=== PATIENT | female | born 1995 | race African-American/Black ===

== ENCOUNTER 2017-07-07 09:44 | Emergency (ER) | payer MEDICAID ==
--- NOTE | 2017-07-07 10:05 | EDM.PDOC ---
ED HPI GENERAL MEDICAL PROBLEM - General Chief Complaint: ENT Problem Stated Complaint: earache Time Seen by Provider: 07/07/17 09:55 - History of Present Illness INITIAL COMMENTS - FREE TEXT/NARRATIVE: HISTORY AND PHYSICAL: History of present illness: The patient is a 21-year-old female who is 34 weeks with no related complaints who comes into the ED with complaints of bilateral ear pain, mostly on the right side but she feels like she can't hear very well on the left side. According to patient started 4 days ago on the right side and her mother tried to put hydrogen peroxide in both ears and the patient says it made it worse and now the left ear feels plugged up. Patient denies any fever chills chest pain or shortness of breath has no sore throat. Patient has no related complaints such as abdominal pain or cramping vaginal bleeding she says the baby has been moving appropriately. Review of systems: As per history of present illness and below otherwise all systems reviewed and negative. Past medical history: As per history of present illness and as reviewed below otherwise noncontributory. Surgical history: As per history of present illness and as reviewed below otherwise noncontributory. Social history: No reported history of drug or alcohol abuse. Family history: As per history of present illness and as reviewed below otherwise noncontributory. Physical exam: Gen.: Well-developed well-nourished female who is nontoxic and has a gravid uterus. Vital signs been reviewed by me HEENT: Atraumatic, normocephalic, pupils reactive, negative for conjunctival pallor or scleral icterus, mucous membranes moist, throat clear, neck supple, nontender, trachea midline. No cervical adenopathy or nuchal rigidity. The right ear is slightly reddened but more dull and there is some cerumen in the canal and no swelling. The left TM is unable to be visualized due to copious white material up against the TM. Lungs: Clear to auscultation, breath sounds equal bilaterally, chest nontender. Heart: S1S2, regular rate and rhythm no overt murmurs Abdomen: Soft, nondistended, nontender. Gravid uterus Pelvis: Stable nontender. Genitourinary: Deferred. Rectal: Deferred. Extremities: Atraumatic, negative for cords or calf pain. Neurovascular unremarkable. Neuro: Awake, alert, oriented. Cranial nerves II through XII unremarkable. Cerebellum unremarkable. Motor and sensory unremarkable throughout. Exam nonfocal. Diagnostics: Therapeutics: Irrigation of left ear After irrigation by nursing the fibrinous whitish material seen up against the TM is not dislodging please do believe that this is a cholesteatoma with an otitis externa. I will refer her to Dr. Mcdowell Impression: Bilateral otalgia, otitis externa/cholesteatoma left, or trimester stable Definitive disposition and diagnosis as appropriate pending reevaluation and review of above. Right Ear Pain Score (Numeric/FACES): 6 - Related Data Allergies Allergy/AdvReac Type Severity Reaction Status Date / Time No Known Allergies Allergy Verified 07/10/15 22:55 Home Meds: Home Meds [id number]/Iron Fumarate/FA/DSS [ 19 Tablet] 1 tab PO DAILY 07/07/17 [ History] Social & Family History - Tobacco Use Smoking Status *Q: Never Smoker - Recreational Drug Use Recreational Drug Use: No ED ROS GENERAL - Review of Systems Review Of Systems: ROS reveals no pertinent complaints other than HPI. ED EXAM, GENERAL - Physical Exam Exam: See Below (See dictation) Course - Vital Signs Last Recorded V/S: Last Vital Signs Temp 36.5 C 07/07/17 09:54 Pulse 83 07/07/17 09:54 Resp 12 07/07/17 09:54 BP 115/55 L 07/07/17 09:54 Pulse Ox 98 07/07/17 09:54 - Orders/Labs/Meds Orders: Active Orders 24 hr Category Date Time Status Communication Order [RC] STAT Care 07/07/17 10:01 Active Departure - Departure Time of Disposition: 10:46 Disposition: Home, Self-Care 01 Condition: Good Clinical Impression: Third trimester , Otalgia of both ears Otitis externa Qualifiers: Otitis externa type: unspecified type Chronicity: acute Laterality: left Qualified Code(s): H60.502 - Unspecified acute noninfective otitis externa, left ear Cholesteatoma Qualifiers: Laterality: left Qualified Code(s): H71.92 - Unspecified cholesteatoma, left ear - Discharge Information Referrals: Mathieu Selby MD [Primary Care Provider] - Forms: ED Department Discharge Additional Instructions: The following information is given to patients seen in the emergency department who are being discharged to home. This information is to outline your options for follow-up care. We provide all patients seen in our emergency department with a follow-up referral. The need for follow-up, as well as the timing and circumstances, are variable depending upon the specifics of your emergency department visit. If you don't have a primary care physician on staff, we will provide you with a referral. We always advise you to contact your personal physician following an emergency department visit to inform them of the circumstance of the visit and for follow-up with them and/or the need for any referrals to a consulting specialist. The emergency department will also refer you to a specialist when appropriate. This referral assures that you have the opportunity for followup care with a specialist. All of these measure are taken in an effort to provide you with optimal care, which includes your followup. Under all circumstances we always encourage you to contact your private physician who remains a resource for coordinating your care. When calling for followup care, please make the office aware that this follow-up is from your recent emergency room visit. If for any reason you are refused follow-up, please contact the [facility] emergency department at and ask to speak to the emergency department charge nurse. [facility] Primary care- Internal Medicine and Family Pr[facility] [address] [place] [id number] [facility] Specialty Care - ENT [address] [place] [id number] Please follow-up with her primary care provider about your ear or our ENT specialist. Please follow-up with [facility] women's clinic for your and use eardrops as directed. Please return to ER as needed and as discussed. - My Orders Last 24 Hours: My Active Orders 07/07/17 10:01 Communication Order [RC] STAT - Assessment/Plan Last 24 Hours: My Active Orders 07/07/17 10:01 Communication Order [RC] STAT
[2017-07-07 11:14] VITALS: BP 100/59
== END 2017-07-07 11:04 | disposition home or self-care (01) ==
LOC: MW.ED 09:44
DX: O99.89 Other specified diseases and conditions complicating pregnancy, childbirth and the puerperium (principal); H60.502 Unspecified acute noninfective otitis externa, left ear; H71.92 Unspecified cholesteatoma, left ear; H92.01 Otalgia, right ear; Z3A.34 34 weeks gestation of pregnancy
CPT/HCPCS: 99283

== ENCOUNTER 2017-07-23 09:10 | Emergency (ER) | payer MEDICAID ==
--- NOTE | 2017-07-23 09:57 | EDM.PDOC ---
ED HPI GENERAL MEDICAL PROBLEM - General Chief Complaint: ENT Problem Stated Complaint: THROAT ISSUES 38WK Time Seen by Provider: 07/23/17 09:41 - History of Present Illness INITIAL COMMENTS - FREE TEXT/NARRATIVE: HISTORY AND PHYSICAL: History of present illness: Patient's 21-year-old black female who presents with concern of sore throat she denies fever chills nausea vomiting or other complaints patient is and has no complaints related to or other Review of systems: As per history of present illness and below otherwise all systems reviewed and negative. Past medical history: As per history of present illness and as reviewed below otherwise noncontributory. Surgical history: As per history of present illness and as reviewed below otherwise noncontributory. Social history: No reported history of drug or alcohol abuse. Family history: As per history of present illness and as reviewed below otherwise noncontributory. Physical exam: HEENT: Atraumatic, normocephalic, pupils reactive, negative for conjunctival pallor or scleral icterus, mucous membranes moist, throat mild injection, neck supple, nontender, trachea midline. Lungs: Clear to auscultation, breath sounds equal bilaterally, chest nontender. Heart: S1S2, regular, negative for clicks, rubs, or JVD. Abdomen: Soft, nondistended, nontender. Negative for masses or hepatosplenomegaly. Negative for costovertebral tenderness. Pelvis: Stable nontender. Genitourinary: Deferred. Rectal: Deferred. Extremities: Atraumatic, negative for cords or calf pain. Neurovascular unremarkable. Neuro: Awake, alert, oriented. Cranial nerves II through XII unremarkable. Cerebellum unremarkable. Motor and sensory unremarkable throughout. Exam nonfocal. Diagnostics: Rapid strep Therapeutics: None Impression: #1 pharyngitis Definitive disposition and diagnosis as appropriate pending reevaluation and review of above. 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 ED EXAM, GENERAL - Physical Exam Exam: See Below (See dictation) Course - Vital Signs Last Recorded V/S: Last Vital Signs Temp 36.5 C 07/23/17 09:31 Pulse 106 H 07/23/17 09:31 Resp 14 07/23/17 09:31 BP 111/65 07/23/17 09:31 Pulse Ox 99 07/23/17 09:31 - Orders/Labs/Meds Orders: Active Orders 24 hr Category Date Time Status CULTURE STREP A CONFIRMATION [RM] Stat Lab 07/23/17 09:50 Results STREP SCRN A RAPID W CULT CONF [RM] Stat Lab 07/23/17 09:50 Results Departure - Departure Time of Disposition: 09:56 Disposition: Home, Self-Care 01 Condition: Good Clinical Impression: Pharyngitis - Discharge Information Instructions: Pharyngitis, [id number] Referrals: Mathieu Selby MD [Primary Care Provider] - Forms: ED Department Discharge Additional Instructions: The following information is given to patients seen in the emergency department who are being discharged to home. This information is to outline your options for follow-up care. We provide all patients seen in our emergency department with a follow-up referral. The need for follow-up, as well as the timing and circumstances, are variable depending upon the specifics of your emergency department visit. If you don't have a primary care physician on staff, we will provide you with a referral. We always advise you to contact your personal physician following an emergency department visit to inform them of the circumstance of the visit and for follow-up with them and/or the need for any referrals to a consulting specialist. The emergency department will also refer you to a specialist when appropriate. This referral assures that you have the opportunity for followup care with a specialist. All of these measure are taken in an effort to provide you with optimal care, which includes your followup. Under all circumstances we always encourage you to contact your private physician who remains a resource for coordinating your care. When calling for followup care, please make the office aware that this follow-up is from your recent emergency room visit. If for any reason you are refused follow-up, please contact the [facility] emergency department at and asked to speak to the emergency department charge nurse. Tylenol as directed follow-up primary medical doctor on today's return as needed as discussed - My Orders Last 24 Hours: My Active Orders 07/23/17 09:50 CULTURE STREP A CONFIRMATION [RM] Stat STREP SCRN A RAPID W CULT CONF [RM] Stat - Assessment/Plan Last 24 Hours: My Active Orders 07/23/17 09:50 CULTURE STREP A CONFIRMATION [RM] Stat STREP SCRN A RAPID W CULT CONF [RM] Stat
[2017-07-23 11:17] VITALS: BP 114/63
== END 2017-07-23 11:18 | disposition home or self-care (01) ==
LOC: MW.ED 09:10
DX: O99.513 Diseases of the respiratory system complicating pregnancy, third trimester (principal); J02.9 Acute pharyngitis, unspecified; Z77.22 Contact with and (suspected) exposure to environmental tobacco smoke (acute) (chronic); Z3A.38 38 weeks gestation of pregnancy
CPT/HCPCS: 87081; 87880; 99283

== ENCOUNTER 2017-08-18 19:55 | Inpatient (IN) | payer MEDICAID ==
[2017-08-18] MEDS ORDERED: Misoprostol 200 MCG Tab PO PRN (20:55)
[2017-08-18] MEDS ORDERED: Water For Irrigation,Sterile 1,000 ML Container IRR PRN (20:55)
[2017-08-18] MEDS ORDERED: Sodium Chloride 0.9% 2.5 ML Syringe FLUSH PRN (20:55)
[2017-08-18] MEDS ORDERED: Sodium Chloride 0.9% 10 ML Syringe FLUSH PRN (20:55)
[2017-08-18] MEDS ORDERED: Butorphanol 1 MG/ML SDV IVPUSH PRN (20:55)
[2017-08-18] MEDS ORDERED: Carboprost Tromethamine 250 MCG/1 ML Amp IM PRN (20:55)
[2017-08-18] MEDS ORDERED: Lidocaine 1% 50 ML MDV INJECT PRN (20:55)
[2017-08-18] MEDS ORDERED: Nalbuphine 10 MG/1 ML Vial IVPUSH PRN (20:55)
[2017-08-18] MEDS ORDERED: Methylergonovine 0.2 MG/1 ML Amp IM PRN (20:55)
[2017-08-18] MEDS ORDERED: Oxytocin/0.9 % Sodium Chloride 30 UNIT/500 ML BAG IV SCH (21:00)
[2017-08-18] MEDS: Lactated Ringers 1,000 ML IV SCH (21:47)
[2017-08-19] MEDS: Lactated Ringers 1,000 ML IV SCH ×3 (00:06→05:11)
[2017-08-19] MEDS ORDERED: Ropivacaine 0.2% 2 MG/ML 20 ML SDV ONE (00:27)
--- NOTE | 2017-08-19 00:27 | PCM.LDHP ---
L&D History of Present Illness - General Date of Service: 08/19/17 Admit Problem/Dx: Patient Status Order with Admit Dx/Problem 08/18/17 20:22 Patient Status [ADT] Routine 08/18/17 20:56 Patient Status [ADT] Routine Admission Diagnosis/Problem Admission Diagnosis/Problem 08/19/17 00:21 21 yo EDC 08/17/2017 40 1/7wks, SROM at 1530 yesterday clear fluid, A-, RI , GBS neg. Source of Information: Patient History Limitations: Reports: No Limitations - History of Present Illness Pain Score: 10 Improves with: Reports: None Worsens with: Reports: None Associated Symptoms: Reports: N - Related Data Allergies/Adverse Reactions: Allergies Allergy/AdvReac Type Severity Reaction Status Date / Time No Known Allergies Allergy Verified 07/23/17 09:43 Home Medications: Home Meds [id number]/Iron Fumarate/FA/DSS [ 19 Tablet] 1 tab PO DAILY 07/07/17 [ History] Past Medical History - Past Health History Medical/Surgical History: Denies Medical/Surgical History Genitourinary History: Reports: UTI, 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: Hematologic History: Reports: Anemia Dermatologic History: Reports: Eczema Social & Family History - Family History Family Medical History: Noncontributory Cardiac: Reports: Pacemaker : Reports: None OBGYN: Reports: Endocrine/Metabolic: Reports: None - Tobacco Use Smoking Status *Q: Never Smoker Second Hand Smoke Exposure: Yes - Caffeine Use Caffeine Use: Reports: Coffee, Soda - Recreational Drug Use Recreational Drug Use: No H&P Review of Systems - Review of Systems: Review Of Systems: See Below General: Reports: No Symptoms HEENT: Reports: No Symptoms Pulmonary: Reports: No Symptoms Cardiovascular: Reports: No Symptoms Gastrointestinal: Reports: No Symptoms Genitourinary: Reports: No Symptoms Musculoskeletal: Reports: No Symptoms Skin: Reports: No Symptoms Psychiatric: Reports: No Symptoms Neurological: Reports: No Symptoms Hematologic/Lymphatic: Reports: No Symptoms Immunologic: Reports: No Symptoms L&D Exam - Exam Exam: See Below - Vital Signs Weight: 88.451 kg - OB Specific Contraction Intensity: Moderate to Strong Movement: Active Heart Tones: Present Heart Tones per Min: 140 Heart Rate (FHR) Variability: Moderate (6-25 bmp) Presentation: Vertex Estimated Weight: 3900 - Koroma Score Koroma Score Cervix Position: Posterior Koroma Score Consistency: Soft Koroma Score Effacement: 51-70% Koroma Score Dilation: 3-4 cm Koroma Score Infant's Station: -3 Koroma Score Total: 6 - Exam General: Alert, Oriented, Cooperative HEENT: Hearing Intact Lungs: Clear to Auscultation, Normal Respiratory Effort Cardiovascular: Regular Rate, Regular Rhythm GI/Abdominal Exam: Soft, Non-Tender, No Organomegaly Rectal Exam: Deferred Genitourinary: Cervical fluid Back Exam: Full Range of Motion Extremities: Normal Range of Motion, Non-Tender, No Pedal Edema, Normal Capillary Refill Skin: Warm, Dry, Intact Neurological: Reflexes Equal Bilateral, Normal Speech, Normal Tone Psychiatric: Alert, Normal Affect, Normal Mood - Patient Data Lab Results Last 24 hrs: Laboratory Results - last 24 hr 08/18/17 08/18/17 08/18/17 Range/Units 20:15 21:25 21:25 WBC 7.90 (4.0-11.0) K/uL RBC 4.19 L (4.30-5.90) M/uL Hgb 11.3 L (12.0-16.0) g/dL Hct 34.4 L (36.0-46.0) % MCV 82.1 (80.0-98.0) fL MCH 27.0 (27.0-32.0) pg MCHC 32.8 (31.0-37.0) g/dL RDW Std Deviation 42.4 (28.0-62.0) fl RDW Coeff of Tomer 14 (11.0-15.0) % Plt Count 194 (150-400) K/uL MPV 11.00 (7.40-12.00) fL Nucleated RBC % 0.0 /100WBC Nucleated RBCs # 0 K/uL Membrane Rupture POSITIVE Blood Type A NEGATIVE Antibody Screen NEGATIVE Result Diagrams: 08/18/17 21:25 - Problem List (1) Supervision of normal IUP (intrauterine ) in primigravida SNOMED Code(s): 71434089, 052470258, 242641927 ICD Code: Z34.00 - ENCNTR FOR SUPRVSN OF NORMAL FIRST , UNSP TRIMESTER Status: Acute Priority: High Current Visit: Yes Qualifiers: Trimester: third trimester Qualified Code(s): Z34.03 - Encounter for supervision of normal first , third trimester (2) SROM (spontaneous rupture of membranes) SNOMED Code(s): 121744723 ICD Code: QEB4606 - Status: Acute Priority: High Current Visit: Yes Problem List Initiated/Reviewed/Updated: Yes Orders Last 24hrs: Active Orders 24 hr Category Date Time Status Patient Status [ADT] Routine ADT 08/18/17 20:22 Active Patient Status [ADT] Routine ADT 08/18/17 20:56 Active Heart Tones [RC] CONTINUOUS Care 08/18/17 20:56 Active Non Stress Test [RC] PER UNIT ROUTINE Care 08/18/17 20:22 Active Non Stress Test [RC] PER UNIT ROUTINE Care 08/18/17 20:56 Active May Shower [RC] ASDIRECTED Care 08/18/17 20:56 Active Notify Provider [RC] PRN Care 08/18/17 20:56 Active Up ad Monik [RC] ASDIRECTED Care 08/18/17 20:22 Active Up ad Monik [RC] ASDIRECTED Care 08/18/17 20:56 Active Vaginal Exam [RC] Click to Edit Care 08/18/17 20:22 Active Vaginal Exam [RC] PRN Care 08/18/17 20:56 Active Vital Signs [RC] PER UNIT ROUTINE Care 08/18/17 20:22 Active Vital Signs [RC] PER UNIT ROUTINE Care 08/18/17 20:56 Active Clear Liquid Diet [DIET] Diet 08/19/17 Breakfast Active Butorphanol [Stadol] Med 08/18/17 20:55 Active 1 mg IVPUSH Q1H PRN Carboprost Tromethamine [Hemabate DS] Med 08/18/17 20:55 Active 250 mcg IM ASDIRECTED PRN Lactated Ringers [Ringers, Lactated] 1,000 ml Med 08/18/17 21:00 Active IV ASDIRECTED Lidocaine 1% [Xylocaine 1%] Med 08/18/17 20:55 Active 50 ml INJECT .ONCE PRN Methylergonovine [Methergine] Med 08/18/17 20:55 Active 0.2 mg IM ASDIRECTED PRN Misoprostol [Cytotec] Med 08/18/17 20:55 Active 200 mcg PO .ONCE PRN Nalbuphine [Nubain] Med 08/18/17 20:55 Active 10 mg IVPUSH Q1H PRN Oxytocin/0.9 % Sodium Chloride [Oxytocin 30 Unit/500 ML Med 08/18/17 21:00 Active -NS] 30 unit in 500 ml IV TITRATE Sodium Chloride 0.9% [Saline Flush] Med 08/18/17 20:55 Active 10 ml FLUSH ASDIRECTED PRN Sodium Chloride 0.9% [Saline Flush] Med 08/18/17 20:55 Active 2.5 ml FLUSH ASDIRECTED PRN Water For Irrigation,Sterile [Sterile Water for Med 08/18/17 20:55 Active Irrigation] 1,000 ml IRR ASDIRECTED PRN Scalp Electrode [WOMSER] Per Unit Routine Oth 08/18/17 20:56 Ordered Peripheral IV Insertion Adult [OM.PC] Routine Oth 08/18/17 20:56 Ordered Resuscitation Status Routine Resus Stat 08/18/17 20:22 Ordered Medication Orders Butorphanol Tartrate (Stadol) 1 mg IVPUSH Q1H PRN PRN Reason: Pain Last Admin: 08/18/17 23:49 Dose: 1 mg Carboprost Tromethamine (Hemabate Ds) 250 mcg IM ASDIRECTED PRN PRN Reason: Post Hemorrhage Lactated Ringer's (Ringers, Lactated) 1,000 mls @ 150 mls/hr IV ASDIRECTED MASOUD Last Admin: 08/19/17 00:06 Dose: 150 mls/hr Infusion: 08/19/17 00:06 Dose: 999 mls/hr Admin: 08/18/17 21:47 Dose: 150 mls/hr Oxytocin/Sodium Chloride (Oxytocin 30 Unit/500 Ml-Ns) 30 unit in 500 mls @ 999 mls/hr IV TITRATE MASOUD Lidocaine HCl (Xylocaine 1%) 50 ml INJECT .ONCE PRN PRN Reason: Laceration repair Methylergonovine Maleate (Methergine) 0.2 mg IM ASDIRECTED PRN PRN Reason: Post Hemorrhage Misoprostol (Cytotec) 200 mcg PO .ONCE PRN PRN Reason: Post Hemorrhage Nalbuphine HCl (Nubain) 10 mg IVPUSH Q1H PRN PRN Reason: Pain (severe 7-10) Sodium Chloride (Saline Flush) 10 ml FLUSH ASDIRECTED PRN PRN Reason: Keep Vein Open Sodium Chloride (Saline Flush) 2.5 ml FLUSH ASDIRECTED PRN PRN Reason: Keep Vein Open Sterile Water (Sterile Water For Irrigation) 1,000 ml IRR ASDIRECTED PRN PRN Reason: delivery Assessment/Plan Comment:: Labor A: 21 yo EDC 08/17/2017 40 1/7wks, SROM at 1530 yesterday clear fluid, A-, RI, GBS neg. P: Admit to L&D, epidural prn, anticipate .
[2017-08-19] MEDS ORDERED: Ropivacaine HCl/PF 100 ML ONE (00:29)
[2017-08-19] MEDS ORDERED: fentaNYL 100 MCG/2 ML SDV ONE (00:30)
--- NOTE | 2017-08-19 01:15 | PCM.PREANE ---
Preanesthetic Assessment - Anesthesia/Transfusion/Family Hx Anesthesia History: No Prior Anesthesia Family History of Anesthesia Reaction: No Transfusion History: No Prior Transfusion(s) - Review of Systems General: No Symptoms Pulmonary: No Symptoms Cardiovascular: No Symptoms Gastrointestinal: No Symptoms Neurological: No Symptoms Other: Reports: None (Denies any personal or family hx of bleeding or clotting problems) - Physical Assessment Height: 1.65 m Weight: 88.451 kg ASA Class: 2 Mental Status: Alert & Oriented x3 Dentition: Reports: Normal Dentition ROM/Head Extension: Full - Lab Values: Laboratory Last Values WBC 7.90 K/uL (4.0-11.0) 08/18/17 21:25 RBC 4.19 M/uL (4.30-5.90) L 08/18/17 21:25 Hgb 11.3 g/dL (12.0-16.0) L 08/18/17 21:25 Hct 34.4 % (36.0-46.0) L 08/18/17 21:25 MCV 82.1 fL (80.0-98.0) 08/18/17 21:25 MCH 27.0 pg (27.0-32.0) 08/18/17 21:25 MCHC 32.8 g/dL (31.0-37.0) 08/18/17 21:25 RDW Std Deviation 42.4 fl (28.0-62.0) 08/18/17 21:25 RDW Coeff of Tomer 14 % (11.0-15.0) 08/18/17 21:25 Plt Count 194 K/uL (150-400) 08/18/17 21:25 MPV 11.00 fL (7.40-12.00) 08/18/17 21:25 Nucleated RBC % 0.0 /100WBC 08/18/17 21:25 Nucleated RBCs # 0 K/uL 08/18/17 21:25 Membrane Rupture POSITIVE 08/18/17 20:15 Blood Type A NEGATIVE 08/18/17 21:25 Antibody Screen NEGATIVE 08/18/17 21:25 - Allergies Allergies/Adverse Reactions: Allergies Allergy/AdvReac Type Severity Reaction Status Date / Time No Known Allergies Allergy Verified 07/23/17 09:43 - Acknowledgements Anesthesia Type Planned: Epidural Pt an Appropriate Candidate for the Planned Anesthesia: Yes Alternatives and Risks of Anesthesia Discussed w Pt/Guardian: Yes Pt/Guardian Understands and Agrees with Anesthesia Plan: Yes PreAnesthesia Questionnaire - Past Health History Medical/Surgical History: Denies Medical/Surgical History Genitourinary History: Reports: UTI, 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: Hematologic History: Reports: Anemia Dermatologic History: Reports: Eczema - SUBSTANCE USE Smoking Status *Q: Never Smoker Second Hand Smoke Exposure: Yes Recreational Drug Use History: No - HOME MEDS Home Medications: Home Meds [id number]/Iron Fumarate/FA/DSS [ 19 Tablet] 1 tab PO DAILY 07/07/17 [ History] - CURRENT (IN HOUSE) MEDS Current Meds: Current Medications Butorphanol Tartrate (Stadol) 1 mg IVPUSH Q1H PRN PRN Reason: Pain Last Admin: 08/18/17 23:49 Dose: 1 mg Carboprost Tromethamine (Hemabate Ds) 250 mcg IM ASDIRECTED PRN PRN Reason: Post Hemorrhage Lactated Ringer's (Ringers, Lactated) 1,000 mls @ 150 mls/hr IV ASDIRECTED MASOUD Last Admin: 08/19/17 01:02 Dose: 150 mls/hr Oxytocin/Sodium Chloride (Oxytocin 30 Unit/500 Ml-Ns) 30 unit in 500 mls @ 999 mls/hr IV TITRATE MASOUD Lidocaine HCl (Xylocaine 1%) 50 ml INJECT .ONCE PRN PRN Reason: Laceration repair Methylergonovine Maleate (Methergine) 0.2 mg IM ASDIRECTED PRN PRN Reason: Post Hemorrhage Misoprostol (Cytotec) 200 mcg PO .ONCE PRN PRN Reason: Post Hemorrhage Nalbuphine HCl (Nubain) 10 mg IVPUSH Q1H PRN PRN Reason: Pain (severe 7-10) Sodium Chloride (Saline Flush) 10 ml FLUSH ASDIRECTED PRN PRN Reason: Keep Vein Open Sodium Chloride (Saline Flush) 2.5 ml FLUSH ASDIRECTED PRN PRN Reason: Keep Vein Open Sterile Water (Sterile Water For Irrigation) 1,000 ml IRR ASDIRECTED PRN PRN Reason: delivery Discontinued Medications Fentanyl (Sublimaze) Confirm Administered Dose 300 mcg .ROUTE .STK-MED ONE Stop: 08/19/17 00:31 Ropivacaine (Naropin 0.2%) Confirm Administered Dose 100 mls @ as directed .ROUTE .ST-MED ONE Stop: 08/19/17 00:30 Ropivacaine (Naropin 0.2%) Confirm Administered Dose 20 ml .ROUTE .[facility]-MED ONE Stop: 08/19/17 00:28
[2017-08-19] MEDS ORDERED: Bisacodyl 10 MG Supp RECTAL PRN (10:39)
[2017-08-19] MEDS ORDERED: Ibuprofen 400 MG Tab PO PRN (10:39)
[2017-08-19] MEDS ORDERED: Witch Hazel Medicated Pads 40/Jar TOP PRN (10:39)
[2017-08-19] MEDS ORDERED: Acetaminophen 500 MG Tab PO PRN ×2 (10:39)
[2017-08-19] MEDS ORDERED: Lanolin 100% Cream 7 GM Tube TOP PRN (10:39)
[2017-08-19] MEDS ORDERED: Docusate Sodium 100 MG Cap PO PRN (10:39)
[2017-08-19] MEDS ORDERED: oxyCODONE 5 MG Tab PO PRN (10:39)
[2017-08-19] MEDS ORDERED: Benzocaine/Menthol 20%-0.5% Spray 78 GM Cannister TOP PRN (10:39)
--- NOTE | 2017-08-19 10:45 | PCM.DEL ---
L & D Note - General Info Date of Service: 08/19/17 Mother's Due Date: 08/17/17 - Delivery Note Labor: Spontaneous Delivery Outcome: Livebirth Infant Delivery Method: Spontaneous Vaginal Delivery-Single Delivery Mode: Spontaneous Presentation: Vertex Nuchal Cord: Present (x1 loose) Anesthesia Type: Epidural Anesthetic: Lidocaine (Xylocaine) 1% Plain Local Anesthetic Volume: 2cc Amniotic Fluid Description: Clear Episiotomy Type: None Laceration: 1st Degree, Perineal Suture type: Vicryl Suture size: 3-0 Placenta: Intact, Spontaneous Cord: 3 Vessels Estimated Blood Loss: 100 Resuscitation Needed: No Score 1 min: 7 Score 5 min: 8 Second Stage Interventions: Reports: Pushing Effectively, Pushing, Pulls Own Legs Back - General Info Date of Service: 08/19/17 Admission Dx/Problem (Free Text): Patient Status Order with Admit Dx/Problem 08/18/17 20:22 Patient Status [ADT] Routine 08/18/17 20:56 Patient Status [ADT] Routine Admission Diagnosis/Problem Admission Diagnosis/Problem 08/19/17 00:21 21 yo EDC 08/17/2017 40 1/7wks, SROM at 1530 yesterday clear fluid, A-, RI , GBS neg. Functional Status: Reports: Pain Controlled - Review of Systems General: Reports: No Symptoms HEENT: Reports: No Symptoms Pulmonary: Reports: No Symptoms Cardiovascular: Reports: No Symptoms Gastrointestinal: Reports: No Symptoms Genitourinary: Reports: No Symptoms Musculoskeletal: Reports: No Symptoms Skin: Reports: No Symptoms Neurological: Reports: No Symptoms Psychiatric: Reports: No Symptoms - Patient Data Weight - Most Recent: 88.451 kg Lab Results Last 24 Hours: Laboratory Results - last 24 hr 08/18/17 08/18/17 08/18/17 Range/Units 20:15 21:25 21:25 WBC 7.90 (4.0-11.0) K/uL RBC 4.19 L (4.30-5.90) M/uL Hgb 11.3 L (12.0-16.0) g/dL Hct 34.4 L (36.0-46.0) % MCV 82.1 (80.0-98.0) fL MCH 27.0 (27.0-32.0) pg MCHC 32.8 (31.0-37.0) g/dL RDW Std Deviation 42.4 (28.0-62.0) fl RDW Coeff of Tomer 14 (11.0-15.0) % Plt Count 194 (150-400) K/uL MPV 11.00 (7.40-12.00) fL Nucleated RBC % 0.0 /100WBC Nucleated RBCs # 0 K/uL Membrane Rupture POSITIVE Blood Type A NEGATIVE Antibody Screen NEGATIVE Med Orders - Current: Current Medications Acetaminophen (Tylenol Extra Strength) 500 mg PO Q4H PRN PRN Reason: Pain Acetaminophen (Tylenol Extra Strength) 1,000 mg PO Q4H PRN PRN Reason: Pain Benzocaine/Menthol (Dermoplast Pain Relief 20%-0.5% Caney) 78 gm TOP ASDIRECTED PRN PRN Reason: Perineal Comfort Measure Bisacodyl (Dulcolax) 10 mg RECTAL .ONCE PRN PRN Reason: Constipation Docusate Sodium (Colace) 100 mg PO BID PRN PRN Reason: Constipation Emollient Ointment (Lansinoh Hpa) 0 gm TOP ASDIRECTED PRN PRN Reason: Sore Nipples Ibuprofen (Motrin) 400 mg PO Q4H PRN PRN Reason: Pain Ibuprofen (Motrin) 800 mg PO Q6H PRN PRN Reason: Pain Oxycodone HCl (Oxycodone) 5 mg PO Q2H PRN PRN Reason: Pain Witch Claire (Tucks) 1 pad TOP ASDIRECTED PRN PRN Reason: comfort care Discontinued Medications Butorphanol Tartrate (Stadol) 1 mg IVPUSH Q1H PRN PRN Reason: Pain Last Admin: 08/18/17 23:49 Dose: 1 mg Carboprost Tromethamine (Hemabate Ds) 250 mcg IM ASDIRECTED PRN PRN Reason: Post Hemorrhage Fentanyl (Sublimaze) Confirm Administered Dose 300 mcg .ROUTE .STK-[facility] ONE Stop: 08/19/17 00:31 Last Admin: 08/19/17 07:41 Dose: Not Given Lactated Ringer's (Ringers, Lactated) 1,000 mls @ 150 mls/hr IV ASDIRECTED MASOUD Last Admin: 08/19/17 05:11 Dose: 150 mls/hr Oxytocin/Sodium Chloride (Oxytocin 30 Unit/500 Ml-Ns) 30 unit in 500 mls @ 999 mls/hr IV TITRATE MASOUD Last Admin: 08/19/17 10:16 Dose: 999 mls/hr Ropivacaine (Naropin 0.2%) Confirm Administered Dose 100 mls @ as directed .ROUTE .[employer] ONE Stop: 08/19/17 00:30 Last Admin: 08/19/17 07:41 Dose: Not Given Lidocaine HCl (Xylocaine 1%) 50 ml INJECT .ONCE PRN PRN Reason: Laceration repair Last Admin: 08/19/17 10:25 Dose: 50 ml Methylergonovine Maleate (Methergine) 0.2 mg IM ASDIRECTED PRN PRN Reason: Post Hemorrhage Misoprostol (Cytotec) 200 mcg PO .ONCE PRN PRN Reason: Post Hemorrhage Nalbuphine HCl (Nubain) 10 mg IVPUSH Q1H PRN PRN Reason: Pain (severe 7-10) Ropivacaine (Naropin 0.2%) Confirm Administered Dose 20 ml .ROUTE .[facility] ONE Stop: 08/19/17 00:28 Last Admin: 08/19/17 07:41 Dose: Not Given Sodium Chloride (Saline Flush) 10 ml FLUSH ASDIRECTED PRN PRN Reason: Keep Vein Open Sodium Chloride (Saline Flush) 2.5 ml FLUSH ASDIRECTED PRN PRN Reason: Keep Vein Open Sterile Water (Sterile Water For Irrigation) 1,000 ml IRR ASDIRECTED PRN PRN Reason: delivery - Exam General: Alert, Oriented, Cooperative, No Acute Distress Lungs: Normal Respiratory Effort GI/Abdominal Exam: Soft, Non-Tender, No Organomegaly (Female) Exam: Normal External Exam, Normal Bimanual Exam, Uterine Tenderness , Vaginal Bleeding, Other (1st degree lac with repair) Back Exam: Full Range of Motion Extremities: Normal Range of Motion, Non-Tender, No Pedal Edema, Normal Capillary Refill Skin: Warm, Dry, Intact Wound/Incisions: Healing Well Neurological: No New Focal Deficit, Normal Speech, Normal Tone Psy/Mental Status: Alert, Normal Affect, Normal Mood - Problem List & Annotations (1) Supervision of normal IUP (intrauterine ) in primigravida SNOMED Code(s): 85527362, 115190188, 436366614 Code(s): Z34.00 - ENCNTR FOR SUPRVSN OF NORMAL FIRST , UNSP TRIMESTER Status: Acute Priority: High Current Visit: Yes Qualifiers: Trimester: third trimester Qualified Code(s): Z34.03 - Encounter for supervision of normal first , third trimester (2) SROM (spontaneous rupture of membranes) SNOMED Code(s): 681264445 Code(s): PWF4403 - Status: Acute Priority: High Current Visit: Yes (3) (normal spontaneous vaginal delivery) SNOMED Code(s): 26172716 Code(s): O80 - ENCOUNTER FOR FULL-TERM UNCOMPLICATED DELIVERY Status: Acute Priority: High Current Visit: Yes - Problem List Review Problem List Initiated/Reviewed/Updated: Yes - My Orders Last 24 Hours: My Active Orders 08/19/17 10:39 May Shower [RC] ASDIRECTED Up ad Monik [RC] ASDIRECTED Vital Signs [RC] PER UNIT ROUTINE Acetaminophen [Tylenol Extra Strength] 1,000 mg PO Q4H PRN Acetaminophen [Tylenol Extra Strength] 500 mg PO Q4H PRN Benzocaine/Menthol [Dermoplast Pain Relief 20%-0.5% Caney] 78 gm TOP ASDIRECTED PRN Bisacodyl [Dulcolax] 10 mg RECTAL .ONCE PRN Docusate Sodium [Colace] 100 mg PO BID PRN Ibuprofen [Motrin] 400 mg PO Q4H PRN Ibuprofen [Motrin] 800 mg PO Q6H PRN Lanolin [Lansinoh HPA] See Dose Instructions TOP ASDIRECTED PRN Witch Claire [Tucks] 1 pad TOP ASDIRECTED PRN oxyCODONE 5 mg PO Q2H PRN Assess Lochia [WOMSER] Per Unit Routine Assess Uterine Involution [WOMSER] Per Unit Routine Peripheral IV Discontinue [OM.PC] Routine Resuscitation Status Routine 08/19/17 10:40 Patient Status [ADT] Routine 08/19/17 Lunch Regular Diet [DIET] - Assessment Assessment:: Delivery of viable male over intact perineu. APGARS 7/8, Wt 7lb 9oz, Stable. 1st degree lac with repair, EBL 100cc, FF 2BU, lochia small, Stable - Plan Plan:: Labor A: 21 yo EDC 08/17/2017 40 1/7wks, SROM at 1530 yesterday clear fluid, A-, RI, GBS neg. P: Admit to L&D, epidural prn, anticipate . Delivery P: routine pp plan of care.
[2017-08-19] MEDS: Ibuprofen 800 MG Tab PO PRN ×2 (11:53→21:02)
--- NOTE | 2017-08-19 13:31 | PCM48HPAN ---
Post Anesthesia Note - EVALUATION WITHIN 48HRS OF ANESTHETIC Vital Signs in Normal Range: Yes Patient Participated in Evaluation: Yes Respiratory Function Stable: Yes Airway Patent: Yes Cardiovascular Function Stable: Yes Hydration Status Stable: Yes Pain Control Satisfactory: Yes Nausea and Vomiting Control Satisfactory: Yes Mental Status Recovered: Yes
[2017-08-20] MEDS: Ibuprofen 800 MG Tab PO PRN (06:19)
[2017-08-20 07:59] VITALS: BP 115/78
--- NOTE | 2017-08-20 08:06 | PCM.DCSUM1 ---
Discharge Summary - Hospital Course Free Text/Narrative:: Discharge home with . Follow up 6 weeks post or sooner if needed. - Discharge Data Discharge Date: 08/20/17 Discharge Disposition: Home, Self-Care 01 Condition: Good - Discharge Diagnosis/Problem(s) (1) Supervision of normal IUP (intrauterine ) in primigravida SNOMED Code(s): 07102290, 707652197, 526370593 ICD Code: Z34.00 - ENCNTR FOR SUPRVSN OF NORMAL FIRST , UNSP TRIMESTER Status: Acute Priority: High Current Visit: Yes Qualifiers: Trimester: third trimester Qualified Code(s): Z34.03 - Encounter for supervision of normal first , third trimester (2) SROM (spontaneous rupture of membranes) SNOMED Code(s): 688408889 ICD Code: [id number] - Status: Acute Priority: High Current Visit: Yes (3) (normal spontaneous vaginal delivery) SNOMED Code(s): 89500126 ICD Code: O80 - ENCOUNTER FOR FULL-TERM UNCOMPLICATED DELIVERY Status: Acute Priority: High Current Visit: Yes - Patient Instructions Diet: Usual Diet as Tolerated Activity: As Tolerated, Rest and Relax Today Driving: May Drive Today Showering/Bathing: May Shower Notify Provider of: Fever, Increased Pain, Swelling and Redness, Nausea and/or Vomiting Other/Special Instructions: Discharge home with . Follow up 6 weeks post or sooner if needed. - Discharge Plan Home Medications: Home Meds [id number]/Iron Fumarate/FA/DSS [ 19 Tablet] 1 tab PO DAILY 07/07/17 [ History] - General Info Date of Service: 08/20/17 Admission Dx/Problem (Free Text: Patient Status Order with Admit Dx/Problem 08/18/17 20:22 Patient Status [ADT] Routine 08/18/17 20:56 Patient Status [ADT] Routine Admission Diagnosis/Problem Admission Diagnosis/Problem 08/19/17 00:21 21 yo EDC 08/17/2017 40 1/7wks, SROM at 1530 yesterday clear fluid, A-, RI , GBS neg. Functional Status: Reports: Pain Controlled, Tolerating Diet, Ambulating, Urinating - Review of Systems General: Reports: No Symptoms HEENT: Reports: No Symptoms Pulmonary: Reports: No Symptoms Cardiovascular: Reports: No Symptoms Gastrointestinal: Reports: No Symptoms Genitourinary: Reports: No Symptoms Musculoskeletal: Reports: No Symptoms Skin: Reports: No Symptoms Neurological: Reports: No Symptoms Psychiatric: Reports: No Symptoms - Patient Data Vitals - Most Recent: Last Vital Signs Temp 36.6 C 08/20/17 07:45 Pulse 65 08/20/17 07:45 Resp 16 08/20/17 07:45 BP 115/78 08/20/17 07:45 Pulse Ox 99 08/20/17 07:45 Weight - Most Recent: 88.451 kg I&O - Last 24 hours: Intake & Output 08/19/17 08/20/17 08/20/17 22:59 06:59 14:59 Intake Total 2 Balance 2 Lab Results - Last 24 hrs: Laboratory Results - last 24 hr 08/19/17 Range/Units 12:00 Screen NEGATIVE (NEGATIVE) RhIG Candidate? YES Rhogam Indicated YES, BABY RH POS H Med Orders - Current: Current Medications Acetaminophen (Tylenol Extra Strength) 500 mg PO Q4H PRN PRN Reason: Pain Acetaminophen (Tylenol Extra Strength) 1,000 mg PO Q4H PRN PRN Reason: Pain Benzocaine/Menthol (Dermoplast Pain Relief 20%-0.5% [place]on) 78 gm TOP ASDIRECTED PRN PRN Reason: Perineal Comfort Measure Last Admin: 08/19/17 11:54 Dose: 1 can Bisacodyl (Dulcolax) 10 mg RECTAL .ONCE PRN PRN Reason: Constipation Docusate Sodium (Colace) 100 mg PO BID PRN PRN Reason: Constipation Last Admin: 08/19/17 21:04 Dose: 100 mg Emollient Ointment (Lansinoh Hpa) 0 gm TOP ASDIRECTED PRN PRN Reason: Sore Nipples Last Admin: 08/19/17 11:54 Dose: 1 tube Ibuprofen (Motrin) 400 mg PO Q4H PRN PRN Reason: Pain Ibuprofen (Motrin) 800 mg PO Q6H PRN PRN Reason: Pain Last Admin: 08/20/17 06:19 Dose: 800 mg Oxycodone HCl (Oxycodone) 5 mg PO Q2H PRN PRN Reason: Pain Witch Claire (Tucks) 1 pad TOP ASDIRECTED PRN PRN Reason: comfort care Last Admin: 08/19/17 11:54 Dose: 1 tub Discontinued Medications Butorphanol Tartrate (Stadol) 1 mg IVPUSH Q1H PRN PRN Reason: Pain Last Admin: 08/18/17 23:49 Dose: 1 mg Carboprost Tromethamine (Hemabate Ds) 250 mcg IM ASDIRECTED PRN PRN Reason: Post Hemorrhage Fentanyl (Sublimaze) Confirm Administered Dose 300 mcg .ROUTE .[facility] ONE Stop: 08/19/17 00:31 Last Admin: 08/19/17 07:41 Dose: Not Given Lactated Ringer's (Ringers, Lactated) 1,000 mls @ 150 mls/hr IV ASDIRECTED MASOUD Last Admin: 08/19/17 05:11 Dose: 150 mls/hr Oxytocin/Sodium Chloride (Oxytocin 30 Unit/500 Ml-Ns) 30 unit in 500 mls @ 999 mls/hr IV TITRATE [facility] Last Admin: 08/19/17 10:16 Dose: 999 mls/hr Ropivacaine (Naropin 0.2%) Confirm Administered Dose 100 mls @ as directed .ROUTE .[facility] ONE Stop: 08/19/17 00:30 Last Admin: 08/19/17 07:41 Dose: Not Given Lidocaine HCl (Xylocaine 1%) 50 ml INJECT .ONCE PRN PRN Reason: Laceration repair Last Admin: 08/19/17 10:25 Dose: 50 ml Methylergonovine Maleate (Methergine) 0.2 mg IM ASDIRECTED PRN PRN Reason: Post Hemorrhage Misoprostol (Cytotec) 200 mcg PO .ONCE PRN PRN Reason: Post Hemorrhage Nalbuphine HCl (Nubain) 10 mg IVPUSH Q1H PRN PRN Reason: Pain (severe 7-10) Ropivacaine (Naropin 0.2%) Confirm Administered Dose 20 ml .ROUTE .[facility] ONE Stop: 08/19/17 00:28 Last Admin: 08/19/17 07:41 Dose: Not Given Sodium Chloride (Saline Flush) 10 ml FLUSH ASDIRECTED PRN PRN Reason: Keep Vein Open Sodium Chloride (Saline Flush) 2.5 ml FLUSH ASDIRECTED PRN PRN Reason: Keep Vein Open Sterile Water (Sterile Water For Irrigation) 1,000 ml IRR ASDIRECTED PRN PRN Reason: delivery - Exam General: Reports: Alert, Oriented, Cooperative, No Acute Distress Lungs: Reports: Clear to Auscultation, Normal Respiratory Effort Cardiovascular: Reports: Regular Rate, Regular Rhythm, No Murmurs GI/Abdominal Exam: Soft, Non-Tender (Female) Exam: Vaginal Bleeding Rectal (Female) Exam: Deferred Back Exam: Reports: Full Range of Motion Extremities: Normal Range of Motion, Non-Tender, No Pedal Edema, Normal Capillary Refill Skin: Reports: Warm, Dry, Intact Wound/Incisions: Reports: Healing Well Neurological: Reports: Normal Speech, Normal Tone Psy/Mental Status: Reports: Alert, Normal Affect, Normal Mood *Q Meaningful Use (DIS) - VTE *Q VTE Criteria *Q: - Stroke *Q Stroke Criteria *Q: - AMI *Q AMI Criteria *Q:
== END 2017-08-20 14:00 | disposition home or self-care (01) | DRG 775 ==
LOC: MW.OBCHECK 19:55 → MW.OB 19:56 → MW.OBCHECK 20:56 → OBSVTOIN 08-19 10:40 → MW.OB 08-19 14:04
PROVIDERS: ADMIT Obstetrics & Gynecology; ATTEND Obstetrics & Gynecology
PROC: 10E0XZZ Delivery of Products of Conception, External Approach (ICD-10-PCS; principal; 2017-08-19)
PROC: 0HQ9XZZ Repair Perineum Skin, External Approach (ICD-10-PCS; 2017-08-19)
DX: O42.02 Full-term premature rupture of membranes, onset of labor within 24 hours of rupture (principal); O70.0 First degree perineal laceration during delivery; Z3A.40 40 weeks gestation of pregnancy; Z37.0 Single live birth
CPT/HCPCS: 01967; 36415; 51702; 59025; 59409; 84112; 85027; 85460; 86850; 86900; 86901; A9270-GY; J0595; J2590; J2790; J7120

== ENCOUNTER 2018-10-02 06:29 | Inpatient (IN) | payer MEDICAID ==
[2018-10-02] MEDS ORDERED: Ampicillin 2 GM AdvVial IV ONE (06:49)
[2018-10-02] MEDS ORDERED: Sodium Chloride 0.9% 100 ML ONE (06:51)
[2018-10-02] MEDS: Lactated Ringers 1,000 ML IV SCH ×2 (06:55→08:07)
[2018-10-02] MEDS ORDERED: Oxytocin/0.9 % Sodium Chloride 30 UNIT/500 ML BAG ONE ×2 (07:07→09:36)
[2018-10-02] MEDS ORDERED: Methylergonovine 0.2 MG/1 ML Amp IM PRN (07:18)
[2018-10-02] MEDS ORDERED: Water For Irrigation,Sterile 1,000 ML Container IRR PRN (07:18)
[2018-10-02] MEDS ORDERED: Misoprostol 200 MCG Tab PO PRN (07:18)
[2018-10-02] MEDS ORDERED: Sodium Chloride 0.9% 2.5 ML Syringe FLUSH PRN (07:18)
[2018-10-02] MEDS ORDERED: Butorphanol 1 MG/ML SDV IVPUSH PRN (07:18)
[2018-10-02] MEDS ORDERED: Nalbuphine 10 MG/1 ML Vial IVPUSH PRN (07:18)
[2018-10-02] MEDS ORDERED: Tranexamic Acid 1,000 MG in Sodium Chloride 0.9% 100 ML IV PRN (07:18)
[2018-10-02] MEDS ORDERED: Sodium Chloride 0.9% 10 ML Syringe FLUSH PRN (07:18)
[2018-10-02] MEDS ORDERED: Lidocaine 1% 50 ML MDV INJECT PRN (07:18)
[2018-10-02] MEDS ORDERED: Carboprost Tromethamine 250 MCG/1 ML Amp IM PRN (07:18)
--- NOTE | 2018-10-02 07:29 | PCM.LDHP ---
L&D History of Present Illness - General Date of Service: 10/02/18 Admit Problem/Dx: Patient Status Order with Admit Dx/Problem 10/02/18 07:18 Patient Status [ADT] Routine Admission Diagnosis/Problem Admission Diagnosis/Problem - planned 10/02/18 07:24 23 yo EDC 10/16/2018 38 0/7wks, A neg, RI, GBS pos. Comes in Trans labor Source of Information: Patient History Limitations: Reports: No Limitations - History of Present Illness Improves with: Reports: None Worsens with: Reports: None Associated Symptoms: Reports: N - Related Data Allergies/Adverse Reactions: Allergies Allergy/AdvReac Type Severity Reaction Status Date / Time No Known Allergies Allergy Verified 07/23/17 09:43 Home Medications: Home Meds [id number]/Iron Fumarate/FA/DSS [ 19 Tablet] 1 tab PO DAILY 07/07/17 [ History] Past Medical History - Past Health History Medical/Surgical History: Denies Medical/Surgical History Genitourinary History: Reports: UTI, Recurrent 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: Hematologic History: Reports: Anemia Dermatologic History: Reports: Eczema Social & Family History - Family History Family Medical History: Noncontributory Cardiac: Reports: Pacemaker : Reports: None OBGYN: Reports: Endocrine/Metabolic: Reports: None - Caffeine Use Caffeine Use: Reports: Coffee, Soda H&P Review of Systems - Review of Systems: Review Of Systems: See Below General: Reports: No Symptoms HEENT: Reports: No Symptoms Pulmonary: Reports: No Symptoms Cardiovascular: Reports: No Symptoms Gastrointestinal: Reports: No Symptoms Genitourinary: Reports: No Symptoms Musculoskeletal: Reports: No Symptoms Skin: Reports: No Symptoms Psychiatric: Reports: No Symptoms Neurological: Reports: No Symptoms Hematologic/Lymphatic: Reports: No Symptoms Immunologic: Reports: No Symptoms L&D Exam - Exam Exam: See Below - OB Specific Contraction Intensity: Strong Movement: Active Heart Tones: Present Heart Tones per Min: 145 Heart Rate (FHR) Variability: Moderate (6-25 bmp) Presentation: Vertex - Koroma Score Koroma Score Cervix Position: Midposition Koroma Score Consistency: Soft Koroma Score Effacement: >80% Koroma Score Dilation: > 5 cm Koroma Score Infant's Station: -3 Koroma Score Total: 9 - Exam HEENT: Hearing Intact Lungs: Clear to Auscultation, Normal Respiratory Effort. No: Decreased Breath Sounds Cardiovascular: Regular Rate, Regular Rhythm, Normal S1, Normal S2 GI/Abdominal Exam: Soft, Non-Tender Rectal Exam: Deferred Genitourinary: Normal external exam, Normal bimanual exam, Cervical dilitation Back Exam: Normal Inspection, Full Range of Motion Extremities: Normal Inspection, Normal Range of Motion, Non-Tender, No Pedal Edema, Normal Capillary Refill Skin: Warm, Dry, Intact Neurological: Cranial Nerves Intact, Reflexes Equal Bilateral, Strength Equal Bilateral, Normal Speech, Normal Tone Psychiatric: Alert, Normal Affect, Normal Mood - Problem List (1) Supervision of normal IUP (intrauterine ) in multigravida SNOMED Code(s): 237371871, 498015426, 398611593 ICD Code: Z34.80 - ENCOUNTER FOR SUPRVSN OF NORMAL , UNSP TRIMESTER Status: Acute Priority: High Current Visit: Yes Qualifiers: Trimester: third trimester Qualified Code(s): Z34.83 - Encounter for supervision of other normal , third trimester Problem List Initiated/Reviewed/Updated: Yes Orders Last 24hrs: Active Orders 24 hr Category Date Time Status Patient Status [ADT] Routine ADT 10/02/18 07:18 Active Heart Tones [RC] CONTINUOUS Care 10/02/18 07:18 Active Non Stress Test [RC] PER UNIT ROUTINE Care 10/02/18 07:18 Active May Shower [RC] ASDIRECTED Care 10/02/18 07:18 Active Notify Provider [RC] PRN Care 10/02/18 07:18 Active Up ad Monik [RC] ASDIRECTED Care 10/02/18 07:18 Active Vaginal Exam [RC] PRN Care 10/02/18 07:18 Active Vital Signs [RC] PER UNIT ROUTINE Care 10/02/18 07:18 Active CBC W/O DIFF,HEMOGRAM [HEME] Stat Lab 10/02/18 07:18 Ordered TYPE AND SCREEN [BBK] Stat Lab 10/02/18 07:18 Ordered Butorphanol [Stadol] Med 10/02/18 07:18 Ordered 1 mg IVPUSH Q1H PRN Carboprost Tromethamine [Hemabate DS] Med 10/02/18 07:18 Ordered 250 mcg IM ASDIRECTED PRN Lactated Ringers [Ringers, Lactated] 1,000 ml Med 10/02/18 07:30 Ordered IV ASDIRECTED Lidocaine 1% [Xylocaine 1%] Med 10/02/18 07:18 Ordered 50 ml INJECT ONETIME PRN Methylergonovine [Methergine] Med 10/02/18 07:18 Ordered 0.2 mg IM ASDIRECTED PRN Nalbuphine [Nubain] Med 10/02/18 07:18 Ordered 10 mg IVPUSH Q1H PRN Oxytocin/0.9 % Sodium Chloride [Oxytocin 30 Unit/500 ML Med 10/02/18 07:30 Ordered -NS] 30 unit in 500 ml IV TITRATE Sodium Chloride 0.9% [Saline Flush] Med 10/02/18 07:18 Ordered 10 ml FLUSH ASDIRECTED PRN Sodium Chloride 0.9% [Saline Flush] Med 10/02/18 07:18 Ordered 2.5 ml FLUSH ASDIRECTED PRN Tranexamic Acid [Cyklokapron] 1,000 mg Med 10/02/18 07:18 Ordered Sodium Chloride 0.9% [Normal Saline] 100 ml IV ONETIME Water For Irrigation,Sterile [Sterile Water for Med 10/02/18 07:18 Ordered Irrigation] 1,000 ml IRR ASDIRECTED PRN miSOPROStol [Cytotec] Med 10/02/18 07:18 Ordered 200 mcg PO ONETIME PRN Scalp Electrode [WOMSER] Per Unit Routine Oth 10/02/18 07:18 Ordered Peripheral IV Insertion Adult [OM.PC] Routine Oth 10/02/18 07:18 Ordered Resuscitation Status Routine Resus Stat 10/02/18 07:18 Ordered Medication Orders Butorphanol Tartrate (Stadol) 1 mg IVPUSH Q1H PRN PRN Reason: Pain Carboprost Tromethamine (Hemabate Ds) 250 mcg IM ASDIRECTED PRN PRN Reason: Post Hemorrhage Lactated Ringer's (Ringers, Lactated) 1,000 mls @ 150 mls/hr IV ASDIRECTED MASOUD Oxytocin/Sodium Chloride (Oxytocin 30 Unit/500 Ml-Ns) 30 unit in 500 mls @ 999 mls/hr IV TITRATE MASOUD Tranexamic Acid 1,000 mg/ (Sodium Chloride) 110 mls @ 660 mls/hr IV ONETIME PRN PRN Reason: Bleeding Lidocaine HCl (Xylocaine 1%) 50 ml INJECT ONETIME PRN PRN Reason: Laceration repair Methylergonovine Maleate (Methergine) 0.2 mg IM ASDIRECTED PRN PRN Reason: Post Hemorrhage Misoprostol (Cytotec) 200 mcg PO ONETIME PRN PRN Reason: Post Hemorrhage Nalbuphine HCl (Nubain) 10 mg IVPUSH Q1H PRN PRN Reason: Pain (severe 7-10) Sodium Chloride (Saline Flush) 10 ml FLUSH ASDIRECTED PRN PRN Reason: Keep Vein Open Sodium Chloride (Saline Flush) 2.5 ml FLUSH ASDIRECTED PRN PRN Reason: Keep Vein Open Sterile Water (Sterile Water For Irrigation) 1,000 ml IRR ASDIRECTED PRN PRN Reason: delivery Assessment/Plan Comment:: Labor A: 23 yo EDC 10/16/2018 38 0/7wks, A neg, RI, GBS pos. Comes in Trans labor. Desires Epidural P: Admit, amp for GBS pos, epidural now, anticipate . Dr Selby updated
[2018-10-02] MEDS ORDERED: Oxytocin/0.9 % Sodium Chloride 30 UNIT/500 ML BAG IV SCH (07:30)
[2018-10-02] MEDS ORDERED: Lidocaine HCl/EPINEPHrine 5 ML IJ ONE (07:49)
[2018-10-02] MEDS ORDERED: Ibuprofen 400 MG Tab PO PRN (08:49)
[2018-10-02] MEDS ORDERED: Acetaminophen 500 MG Tab PO PRN (08:49)
[2018-10-02] MEDS ORDERED: Lanolin 100% Cream 7 GM Tube TOP PRN (08:49)
[2018-10-02] MEDS ORDERED: Docusate Sodium 100 MG Cap PO PRN (08:49)
[2018-10-02] MEDS ORDERED: Benzocaine/Menthol 20%-0.5% Spray 78 GM Cannister TOP PRN (08:49)
[2018-10-02] MEDS ORDERED: Witch Hazel Medicated Pads 40/Jar TOP PRN (08:49)
[2018-10-02] MEDS ORDERED: Bisacodyl 10 MG Supp RECTAL PRN (08:49)
--- NOTE | 2018-10-02 08:58 | PCM.DEL ---
L & D Note - General Info Date of Service: 10/02/18 Mother's Due Date: 10/16/18 - Delivery Note Labor: Spontaneous Delivery Outcome: Livebirth Infant Delivery Method: Spontaneous Vaginal Delivery-Single Delivery Mode: Spontaneous Presentation: Vertex Nuchal Cord: Present Anesthesia Type: Epidural Amniotic Fluid Description: Clear Episiotomy Type: None Laceration: None Placenta: Intact Cord: 3 Vessels Estimated Blood Loss: 100 Score 1 min: 9 Score 5 min: 9 Second Stage Interventions: Reports: Pushing, Pulls Own Legs Back Delivery Comments (Free Text/Narrative):: of viable male, membranes ruptured at time of delivery. Head delivered, nuchal cord x1 tight and infant delivered through, shoulders and body delivered easily. with spont cry placed on mothers abd skin to skin. RN at for evaluation. Delayed cord clamping. Pitocin to IVF. Cord blood collected. Placenta delivered grossly intact. Inspection noted intact perineum. EBL 100cc, APGARS 9/9, Wt: 6lb 6oz. Mother and baby left in stable condition for recovery. - General Info Date of Service: 10/02/18 Admission Dx/Problem (Free Text): Patient Status Order with Admit Dx/Problem 10/02/18 07:18 Patient Status [ADT] Routine Admission Diagnosis/Problem Admission Diagnosis/Problem - planned 10/02/18 07:24 23 yo EDC 10/16/2018 38 0/7wks, A neg, RI, GBS pos. Comes in Trans labor Functional Status: Reports: Pain Controlled, Tolerating Diet - Review of Systems General: Reports: No Symptoms HEENT: Reports: No Symptoms Pulmonary: Reports: No Symptoms Cardiovascular: Reports: No Symptoms Gastrointestinal: Reports: No Symptoms Genitourinary: Reports: No Symptoms Musculoskeletal: Reports: No Symptoms Skin: Reports: No Symptoms Neurological: Reports: No Symptoms Psychiatric: Reports: No Symptoms - Patient Data Lab Results Last 24 Hours: Laboratory Results - last 24 hr 10/02/18 Range/Units 07:30 WBC 8.94 (4.0-11.0) K/uL RBC 3.90 L (4.30-5.90) M/uL Hgb 10.7 L (12.0-16.0) g/dL Hct 32.4 L (36.0-46.0) % MCV 83.1 (80.0-98.0) fL MCH 27.4 (27.0-32.0) pg MCHC 33.0 (31.0-37.0) g/dL RDW Std Deviation 41.4 (28.0-62.0) fl RDW Coeff of Tomer 14 (11.0-15.0) % Plt Count 222 (150-400) K/uL MPV 10.60 (7.40-12.00) fL Nucleated RBC % 0.0 /100WBC Nucleated RBCs # 0 K/uL Med Orders - Current: Current Medications Acetaminophen (Tylenol Extra Strength) 500 mg PO Q4H PRN PRN Reason: Pain Acetaminophen (Tylenol Extra Strength) 1,000 mg PO Q4H PRN PRN Reason: Pain Benzocaine/Menthol (Dermoplast Pain Relief 20%-0.5% [place]) 78 gm TOP ASDIRECTED PRN PRN Reason: Perineal Comfort Measure Bisacodyl (Dulcolax) 10 mg RECTAL ONETIME PRN PRN Reason: Constipation Docusate Sodium (Colace) 100 mg PO BID PRN PRN Reason: Constipation Emollient Ointment (Lansinoh Hpa) 0 gm TOP ASDIRECTED PRN PRN Reason: Sore Nipples Ibuprofen (Motrin) 400 mg PO Q4H PRN PRN Reason: Pain Ibuprofen (Motrin) 800 mg PO Q6H PRN PRN Reason: Pain Oxycodone HCl (Oxycodone) 5 mg PO Q2H PRN PRN Reason: Pain Witch Claire (Tucks) 1 pad TOP ASDIRECTED PRN PRN Reason: comfort care Discontinued Medications Ampicillin Sodium (Ampicillin) Confirm Administered Dose 2 gm IV .STK-MED ONE Stop: 10/02/18 06:50 Butorphanol Tartrate (Stadol) 1 mg IVPUSH Q1H PRN PRN Reason: Pain Carboprost Tromethamine (Hemabate Ds) 250 mcg IM ASDIRECTED PRN PRN Reason: Post Hemorrhage Sodium Chloride (Normal Saline) Confirm Administered Dose 100 mls @ as directed .ROUTE .STK-MED ONE Stop: 10/02/18 06:52 Oxytocin/Sodium Chloride (Oxytocin 30 Unit/500 Ml-Ns) Confirm Administered Dose 30 unit in 500 mls @ as directed .ROUTE .STK-MED ONE Stop: 10/02/18 07:08 Lactated Ringer's (Ringers, Lactated) 1,000 mls @ 150 mls/hr IV ASDIRECTED [facility] Last Admin: 10/02/18 08:07 Dose: 999 mls/hr Oxytocin/Sodium Chloride (Oxytocin 30 Unit/500 Ml-Ns) 30 unit in 500 mls @ 999 mls/hr IV TITRATE [facility] Tranexamic Acid 1,000 mg/ (Sodium Chloride) 110 mls @ 660 mls/hr IV ONETIME PRN PRN Reason: Bleeding Fentanyl/Bupivacaine HCl (Yajejekn-Ofgmc-Oo 2 Mcg/Ml-0.125%) Confirm Administered Dose 0 mls @ as directed .ROUTE .STK-MED ONE Stop: 10/02/18 07:49 Lidocaine HCl (Xylocaine 1%) 50 ml INJECT ONETIME PRN PRN Reason: Laceration repair Lidocaine/Epinephrine (Lidocaine 1.5%-Epi 1:200,000) Confirm Administered Dose 10 ml IJ .STK-MED ONE Stop: 10/02/18 07:50 Methylergonovine Maleate (Methergine) 0.2 mg IM ASDIRECTED PRN PRN Reason: Post Hemorrhage Misoprostol (Cytotec) 200 mcg PO ONETIME PRN PRN Reason: Post Hemorrhage Nalbuphine HCl (Nubain) 10 mg IVPUSH Q1H PRN PRN Reason: Pain (severe 7-10) Sodium Chloride (Saline Flush) 10 ml FLUSH ASDIRECTED PRN PRN Reason: Keep Vein Open Sodium Chloride (Saline Flush) 2.5 ml FLUSH ASDIRECTED PRN PRN Reason: Keep Vein Open Sterile Water (Sterile Water For Irrigation) 1,000 ml IRR ASDIRECTED PRN PRN Reason: delivery - Exam General: Alert, Oriented, Cooperative, No Acute Distress Lungs: Normal Respiratory Effort GI/Abdominal Exam: Soft, Non-Tender (Female) Exam: Normal External Exam, Normal Bimanual Exam, Vaginal Bleeding Back Exam: Normal Inspection, Full Range of Motion Extremities: Normal Inspection, Normal Range of Motion, Non-Tender, No Pedal Edema, Normal Capillary Refill Skin: Warm, Dry, Intact Neurological: No New Focal Deficit, Normal Speech, Normal Tone, Strength Equal Bilateral Psy/Mental Status: Alert, Normal Affect, Normal Mood - Problem List & Annotations (1) Supervision of normal IUP (intrauterine ) in multigravida SNOMED Code(s): 494044208, 793269867, 232087260 Code(s): Z34.80 - ENCOUNTER FOR SUPRVSN OF NORMAL , UNSP TRIMESTER Status: Acute Priority: High Current Visit: Yes Qualifiers: Trimester: third trimester Qualified Code(s): Z34.83 - Encounter for supervision of other normal , third trimester (2) (normal spontaneous vaginal delivery) SNOMED Code(s): 25039475 Code(s): O80 - ENCOUNTER FOR FULL-TERM UNCOMPLICATED DELIVERY Status: Acute Priority: High Current Visit: Yes - Problem List Review Problem List Initiated/Reviewed/Updated: Yes - My Orders Last 24 Hours: My Active Orders 10/02/18 07:18 Heart Tones [RC] CONTINUOUS Non Stress Test [RC] PER UNIT ROUTINE May Shower [RC] ASDIRECTED Notify Provider [RC] PRN Up ad Monik [RC] ASDIRECTED Vaginal Exam [RC] PRN Vital Signs [RC] PER UNIT ROUTINE 10/02/18 07:30 TYPE AND SCREEN [BBK] Stat 10/02/18 08:49 May Shower [RC] ASDIRECTED Up ad Monik [RC] ASDIRECTED Vital Signs [RC] PER UNIT ROUTINE Acetaminophen [Tylenol Extra Strength] 1,000 mg PO Q4H PRN Acetaminophen [Tylenol Extra Strength] 500 mg PO Q4H PRN Benzocaine/Menthol [Dermoplast Pain Relief 20%-0.5% [place]] 78 gm TOP ASDIRECTED PRN Bisacodyl [Dulcolax] 10 mg RECTAL ONETIME PRN Docusate Sodium [Colace] 100 mg PO BID PRN Ibuprofen [Motrin] 400 mg PO Q4H PRN Ibuprofen [Motrin] 800 mg PO Q6H PRN Lanolin [Lansinoh HPA] See Dose Instructions TOP ASDIRECTED PRN Witch Claire [Tucks] 1 pad TOP ASDIRECTED PRN oxyCODONE 5 mg PO Q2H PRN Assess Lochia [WOMSER] Per Unit Routine Assess Uterine Involution [WOMSER] Per Unit Routine Peripheral IV Discontinue [OM.PC] Routine Resuscitation Status Routine 10/02/18 Breakfast Regular Diet [DIET] - Plan Plan:: Labor A: 23 yo EDC 10/16/2018 38 0/7wks, A neg, RI, GBS pos. Comes in Trans labor. Desires Epidural P: Admit, amp for GBS pos, epidural now, anticipate . Dr Selby updated Delivery A: male, APGARS 9/9, Wt: 6lb 6oz. Intact perineum, EBL 100cc, mother and baby left in stable condition for recovery. P: Routine pp plan of care
--- NOTE | 2018-10-02 09:17 | PCM.PREANE ---
Preanesthetic Assessment - Procedure Proposed Procedure: for continuous laabor epidural insertion - Anesthesia/Transfusion/Family Hx Anesthesia History: Prior Anesthesia Without Reaction (previously had labor epidural on 07/2017 without problems Denies any other surgeries.) Family History of Anesthesia Reaction: No Transfusion History: No Prior Transfusion(s) - Review of Systems General: No Symptoms ( in labor, vomiting actively in room, 38 weeks. Reassessed later and patient was more able to communicate. Past history of anemia and eczema. EMR states history of otalgia and cholesteatoma and recurrent UTIs but patient is unaware of any of this. Baby daddy in room watching, then sleeping.) Pulmonary: No Symptoms Cardiovascular: No Symptoms Gastrointestinal: No Symptoms (actively vomiting, in labor.) Neurological: No Symptoms Other: Reports: None - Physical Assessment NPO Status Date: 10/01/18 NPO Status Time: 21:00 (has been drinking since then) Pulse: 85 (fht 130s to 140s) O2 Sat by Pulse Oximetry: 100 Respiratory Rate: 28 (hyperventilating between vomits. RN trying to get her to calm down) Blood Pressure: 125/74 Height: 0 cm (5' 5") Weight: 88 kg ASA Class: 2E Mental Status: Other (actively vomiting) Airway Class: Mallampati = 2 Dentition: Reports: Normal Dentition Thyro-Mental Finger Breadths: 2 Mouth Opening Finger Breadths: 2 ROM/Head Extension: Full Lungs: Clear to Auscultation, Normal Respiratory Effort Cardiovascular: Regular Rate, Regular Rhythm, No Murmurs - Lab Values: Laboratory Last Values WBC 8.94 K/uL (4.0-11.0) 10/02/18 07:30 RBC 3.90 M/uL (4.30-5.90) L 10/02/18 07:30 Hgb 10.7 g/dL (12.0-16.0) L 10/02/18 07:30 Hct 32.4 % (36.0-46.0) L 10/02/18 07:30 MCV 83.1 fL (80.0-98.0) 10/02/18 07:30 MCH 27.4 pg (27.0-32.0) 10/02/18 07:30 MCHC 33.0 g/dL (31.0-37.0) 10/02/18 07:30 RDW Std Deviation 41.4 fl (28.0-62.0) 10/02/18 07:30 RDW Coeff of Tomer 14 % (11.0-15.0) 10/02/18 07:30 Plt Count 222 K/uL (150-400) 10/02/18 07:30 MPV 10.60 fL (7.40-12.00) 10/02/18 07:30 Nucleated RBC % 0.0 /100WBC 10/02/18 07:30 Nucleated RBCs # 0 K/uL 10/02/18 07:30 - Allergies Allergies/Adverse Reactions: Allergies Allergy/AdvReac Type Severity Reaction Status Date / Time No Known Allergies Allergy Verified 07/23/17 09:43 - Blood Blood Available: No Product(s) Available: None - Anesthesia Plan Pre-Op Medication Ordered: None - Acknowledgements Anesthesia Type Planned: Epidural (continuous labor epidural. Discussed with patient and baby daddy. 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: Reports: Hematologic History: Reports: Anemia Dermatologic History: Reports: Eczema - HOME MEDS Home Medications: Home Meds [id number]/Iron Fumarate/FA/DSS [ 19 Tablet] 1 tab PO DAILY 07/07/17 [ History] - CURRENT (IN HOUSE) MEDS Current Meds: Current Medications Acetaminophen (Tylenol Extra Strength) 500 mg PO Q4H PRN PRN Reason: Pain Acetaminophen (Tylenol Extra Strength) 1,000 mg PO Q4H PRN PRN Reason: Pain Benzocaine/Menthol (Dermoplast Pain Relief 20%-0.5% [place]) 78 gm TOP ASDIRECTED PRN PRN Reason: Perineal Comfort Measure Bisacodyl (Dulcolax) 10 mg RECTAL ONETIME PRN PRN Reason: Constipation Docusate Sodium (Colace) 100 mg PO BID PRN PRN Reason: Constipation Emollient Ointment (Lansinoh Hpa) 0 gm TOP ASDIRECTED PRN PRN Reason: Sore Nipples Ibuprofen (Motrin) 400 mg PO Q4H PRN PRN Reason: Pain Ibuprofen (Motrin) 800 mg PO Q6H PRN PRN Reason: Pain Oxycodone HCl (Oxycodone) 5 mg PO Q2H PRN PRN Reason: Pain Witch Claire (Tucks) 1 pad TOP ASDIRECTED PRN PRN Reason: comfort care Discontinued Medications Ampicillin Sodium (Ampicillin) Confirm Administered Dose 2 gm IV .STK-MED ONE Stop: 10/02/18 06:50 Butorphanol Tartrate (Stadol) 1 mg IVPUSH Q1H PRN PRN Reason: Pain Carboprost Tromethamine (Hemabate Ds) 250 mcg IM ASDIRECTED PRN PRN Reason: Post Hemorrhage Sodium Chloride (Normal Saline) Confirm Administered Dose 100 mls @ as directed .ROUTE .STK-MED ONE Stop: 10/02/18 06:52 Oxytocin/Sodium Chloride (Oxytocin 30 Unit/500 Ml-Ns) Confirm Administered Dose 30 unit in 500 mls @ as directed .ROUTE .[employer]-MED ONE Stop: 10/02/18 07:08 Lactated Ringer's (Ringers, Lactated) 1,000 mls @ 150 mls/hr IV ASDIRECTED [facility] Last Admin: 10/02/18 08:07 Dose: 999 mls/hr Oxytocin/Sodium Chloride (Oxytocin 30 Unit/500 Ml-Ns) 30 unit in 500 mls @ 999 mls/hr IV TITRATE [facility] Tranexamic Acid 1,000 mg/ (Sodium Chloride) 110 mls @ 660 mls/hr IV ONETIME PRN PRN Reason: Bleeding Fentanyl/Bupivacaine HCl (Udkfeuti-Fnbwe-Gk 2 Mcg/Ml-0.125%) Confirm Administered Dose 0 mls @ as directed .ROUTE .STK-MED ONE Stop: 10/02/18 07:49 Lidocaine HCl (Xylocaine 1%) 50 ml INJECT ONETIME PRN PRN Reason: Laceration repair Lidocaine/Epinephrine (Lidocaine 1.5%-Epi 1:200,000) Confirm Administered Dose 10 ml IJ .STK-MED ONE Stop: 10/02/18 07:50 Methylergonovine Maleate (Methergine) 0.2 mg IM ASDIRECTED PRN PRN Reason: Post Hemorrhage Misoprostol (Cytotec) 200 mcg PO ONETIME PRN PRN Reason: Post Hemorrhage Nalbuphine HCl (Nubain) 10 mg IVPUSH Q1H PRN PRN Reason: Pain (severe 7-10) Sodium Chloride (Saline Flush) 10 ml FLUSH ASDIRECTED PRN PRN Reason: Keep Vein Open Sodium Chloride (Saline Flush) 2.5 ml FLUSH ASDIRECTED PRN PRN Reason: Keep Vein Open Sterile Water (Sterile Water For Irrigation) 1,000 ml IRR ASDIRECTED PRN PRN Reason: delivery
--- NOTE | 2018-10-02 09:20 | PCM48HPAN ---
Post Anesthesia Note - EVALUATION WITHIN 48HRS OF ANESTHETIC Vital Signs in Normal Range: Yes Patient Participated in Evaluation: Yes Respiratory Function Stable: Yes Airway Patent: Yes Cardiovascular Function Stable: Yes Hydration Status Stable: Yes Pain Control Satisfactory: Yes Nausea and Vomiting Control Satisfactory: Yes Pulse Rate: 85 (fht 130s to 140s) Resp Rate: 28 (hyperventilating between vomits. RN trying to get her to calm down) Blood Pressure: 125/74 - COMMENTS/OBSERVATIONS Free Text/Narrative:: patient initially seen at 0734 for labor epidural, consent signed at 0755 epidural insertion completed at 0815, 2 test doses of 1.5$ lido (total 5ml) administered without untoward effects. 2 minutes later her bag of murphy broke. Delivered baby boy at 0820
[2018-10-02] MEDS ORDERED: Methylergonovine 0.2 MG/1 ML Amp ONE (09:34)
[2018-10-02] MEDS: oxyCODONE 5 MG Tab PO PRN ×2 (11:24→18:23)
[2018-10-02] MEDS: Acetaminophen 500 MG Tab PO PRN ×2 (11:25→18:25)
--- NOTE | 2018-10-02 14:02 | PCM48HPAN ---
Post Anesthesia Note - EVALUATION WITHIN 48HRS OF ANESTHETIC Vital Signs in Normal Range: Yes Patient Participated in Evaluation: Yes Respiratory Function Stable: Yes Airway Patent: Yes Cardiovascular Function Stable: Yes Hydration Status Stable: Yes Pain Control Satisfactory: Yes Nausea and Vomiting Control Satisfactory: Yes Mental Status Recovered: Yes Pulse Rate: 85 (fht 130s to 140s) SaO2: 98 Resp Rate: 28 (hyperventilating between vomits. RN trying to get her to calm down) Blood Pressure: 125/74 - COMMENTS/OBSERVATIONS Free Text/Narrative:: doing well. No issues with epidural placement or removal.
[2018-10-02] MEDS: Ibuprofen 800 MG Tab PO PRN (15:43)
[2018-10-03] MEDS: Ibuprofen 800 MG Tab PO PRN (00:28)
[2018-10-03] MEDS: Acetaminophen 500 MG Tab PO PRN (06:11)
[2018-10-03 08:05] VITALS: BP 107/59
--- NOTE | 2018-10-03 08:29 | PCM.DCSUM1 ---
Discharge Summary - Hospital Course Free Text/Narrative:: Discharge home with infant. Follow up in 6 weeks for post Diagnosis: Stroke: No - Discharge Data Discharge Date: 10/03/18 Discharge Disposition: Home, Self-Care 01 Condition: Good - Discharge Diagnosis/Problem(s) (1) Supervision of normal IUP (intrauterine ) in multigravida SNOMED Code(s): 554784917, 199295427, 035537293 ICD Code: Z34.80 - ENCOUNTER FOR SUPRVSN OF NORMAL , UNSP TRIMESTER Status: Acute Priority: High Current Visit: Yes Qualifiers: Trimester: third trimester Qualified Code(s): Z34.83 - Encounter for supervision of other normal , third trimester (2) (normal spontaneous vaginal delivery) SNOMED Code(s): 86819946 ICD Code: O80 - ENCOUNTER FOR FULL-TERM UNCOMPLICATED DELIVERY Status: Acute Priority: High Current Visit: Yes - Patient Instructions Diet: Usual Diet as Tolerated Activity: As Tolerated, No Strenuous Activities, Rest and Relax Today Driving: May Drive Today Showering/Bathing: May Shower Notify Provider of: Fever, Increased Pain, Swelling and Redness, Nausea and/or Vomiting Other/Special Instructions: Discharge home with infant. Follow up in 6 weeks for post - Discharge Plan *PRESCRIPTION DRUG MONITORING PROGRAM REVIEWED*: Not Applicable *COPY OF PRESCRIPTION DRUG MONITORING REPORT IN PATIENT CHRIS: Not Applicable Home Medications: Home Meds [id number]/Iron Fumarate/FA/DSS [ 19 Tablet] 1 tab PO DAILY 07/07/17 [ History] Oxygen Therapy Mode: Room Air - Discharge Summary/Plan Comment DC Time >30 min.: Yes - General Info Date of Service: 10/03/18 Admission Dx/Problem (Free Text: Patient Status Order with Admit Dx/Problem 10/02/18 07:18 Patient Status [ADT] Routine Admission Diagnosis/Problem Admission Diagnosis/Problem - planned 10/02/18 07:24 23 yo EDC 10/16/2018 38 0/7wks, A neg, RI, GBS pos. Comes in Trans labor Functional Status: Reports: Pain Controlled, Tolerating Diet, Ambulating, Urinating - Review of Systems General: Reports: No Symptoms HEENT: Reports: No Symptoms Pulmonary: Reports: No Symptoms Cardiovascular: Reports: No Symptoms Gastrointestinal: Reports: No Symptoms Genitourinary: Reports: No Symptoms Musculoskeletal: Reports: No Symptoms Skin: Reports: No Symptoms Neurological: Reports: No Symptoms Psychiatric: Reports: No Symptoms - Patient Data Vitals - Most Recent: Last Vital Signs Temp 36.6 C 10/03/18 08:00 Pulse 64 10/03/18 08:00 Resp 15 10/03/18 08:00 BP 107/59 L 10/03/18 08:00 Pulse Ox 99 10/03/18 08:00 Weight - Most Recent: 88 kg I&O - Last 24 hours: Intake & Output 10/02/18 10/03/18 10/03/18 22:59 06:59 14:59 Intake Total 2 Balance 2 Lab Results - Last 24 hrs: Laboratory Results - last 24 hr 10/02/18 10/02/18 Range/Units 07:30 10:37 Blood Type A NEGATIVE Antibody Screen POSITIVE Antibody Identification Anti-D Screen NEGATIVE (NEGATIVE) RhIG Candidate? YES Rhogam Indicated YES, BABY RH POS H Med Orders - Current: Current Medications Acetaminophen (Tylenol Extra Strength) 500 mg PO Q4H PRN PRN Reason: Pain Acetaminophen (Tylenol Extra Strength) 1,000 mg PO Q4H PRN PRN Reason: Pain Last Admin: 10/03/18 06:11 Dose: 1,000 mg Benzocaine/Menthol (Dermoplast Pain Relief 20%-0.5% [place]) 78 gm TOP ASDIRECTED PRN PRN Reason: Perineal Comfort Measure Last Admin: 10/02/18 09:40 Dose: 1 can Bisacodyl (Dulcolax) 10 mg RECTAL ONETIME PRN PRN Reason: Constipation Docusate Sodium (Colace) 100 mg PO BID PRN PRN Reason: Constipation Emollient Ointment (Lansinoh Hpa) 0 gm TOP ASDIRECTED PRN PRN Reason: Sore Nipples Ibuprofen (Motrin) 400 mg PO Q4H PRN PRN Reason: Pain Ibuprofen (Motrin) 800 mg PO Q6H PRN PRN Reason: Pain Last Admin: 10/03/18 00:28 Dose: 800 mg Oxycodone HCl (Oxycodone) 5 mg PO Q2H PRN PRN Reason: Pain Last Admin: 10/02/18 18:23 Dose: 5 mg Witch Claire (Tucks) 1 pad TOP ASDIRECTED PRN PRN Reason: comfort care Last Admin: 10/02/18 10:35 Dose: 1 tub Discontinued Medications Ampicillin Sodium (Ampicillin) Confirm Administered Dose 2 gm IV .STLiveroof [place]-MED ONE Stop: 10/02/18 06:50 Last Admin: 10/02/18 06:52 Dose: 2 gm Butorphanol Tartrate (Stadol) 1 mg IVPUSH Q1H PRN PRN Reason: Pain Carboprost Tromethamine (Hemabate Ds) 250 mcg IM ASDIRECTED PRN PRN Reason: Post Hemorrhage Sodium Chloride (Normal Saline) Confirm Administered Dose 100 mls @ as directed .ROUTE .[employer]-MED ONE Stop: 10/02/18 06:52 Last Admin: 10/02/18 06:52 Dose: 100 mls/hr Oxytocin/Sodium Chloride (Oxytocin 30 Unit/500 Ml-Ns) Confirm Administered Dose 30 unit in 500 mls @ as directed .ROUTE .[employer]-MED ONE Stop: 10/02/18 07:08 Lactated Ringer's (Ringers, Lactated) 1,000 mls @ 150 mls/hr IV ASDIRECTED [facility] Last Admin: 10/02/18 08:07 Dose: 999 mls/hr Oxytocin/Sodium Chloride (Oxytocin 30 Unit/500 Ml-Ns) 30 unit in 500 mls @ 999 mls/hr IV TITRATE [facility] Last Admin: 10/02/18 08:22 Dose: 999 mls/hr Tranexamic Acid 1,000 mg/ (Sodium Chloride) 110 mls @ 660 mls/hr IV ONETIME PRN PRN Reason: Bleeding Fentanyl/Bupivacaine HCl (Sdokwofw-Bazcr-Ex 2 Mcg/Ml-0.125%) Confirm Administered Dose 0 mls @ as directed .ROUTE .[employer]-MED ONE Stop: 10/02/18 07:49 Oxytocin/Sodium Chloride (Oxytocin 30 Unit/500 Ml-Ns) Confirm Administered Dose 30 unit in 500 mls @ as directed .ROUTE .[employer]-MED ONE Stop: 10/02/18 09:37 Last Admin: 10/02/18 09:46 Dose: 999 mls/hr Lidocaine HCl (Xylocaine 1%) 50 ml INJECT ONETIME PRN PRN Reason: Laceration repair Lidocaine/Epinephrine (Lidocaine 1.5%-Epi 1:200,000) Confirm Administered Dose 10 ml IJ .STLiveroof [place]-MED ONE Stop: 10/02/18 07:50 Methylergonovine Maleate (Methergine) 0.2 mg IM ASDIRECTED PRN PRN Reason: Post Hemorrhage Methylergonovine Maleate (Methergine) Confirm Administered Dose 0.2 mg .ROUTE .STK-MED ONE Stop: 10/02/18 09:35 Last Admin: 10/02/18 09:41 Dose: 0.2 mg Misoprostol (Cytotec) 200 mcg PO ONETIME PRN PRN Reason: Post Hemorrhage Nalbuphine HCl (Nubain) 10 mg IVPUSH Q1H PRN PRN Reason: Pain (severe 7-10) Sodium Chloride (Saline Flush) 10 ml FLUSH ASDIRECTED PRN PRN Reason: Keep Vein Open Sodium Chloride (Saline Flush) 2.5 ml FLUSH ASDIRECTED PRN PRN Reason: Keep Vein Open Sterile Water (Sterile Water For Irrigation) 1,000 ml IRR ASDIRECTED PRN PRN Reason: delivery - Exam General: Reports: Alert, Oriented, Cooperative, No Acute Distress Lungs: Reports: Clear to Auscultation, Normal Respiratory Effort Cardiovascular: Reports: Regular Rate, Regular Rhythm, No Murmurs GI/Abdominal Exam: Soft, Non-Tender (Female) Exam: Deferred, Vaginal Bleeding Rectal (Female) Exam: Deferred Back Exam: Reports: Normal Inspection, Full Range of Motion Extremities: Normal Inspection, Normal Range of Motion, Non-Tender, No Pedal Edema, Normal Capillary Refill Skin: Reports: Warm, Dry, Intact Neurological: Reports: No New Focal Deficit, Normal Speech, Normal Tone, Strength Equal Bilateral Psy/Mental Status: Reports: Alert, Normal Affect, Normal Mood
== END 2018-10-03 12:05 | disposition home or self-care (01) | DRG 807 ==
LOC: MW.OBCHECK 06:29 → MW.OB 06:30 → MW.OBCHECK 07:18 → MW.OB 07:18 → OBSVTOIN 08:21 → MW.OB 11:50
PROVIDERS: ADMIT Obstetrics & Gynecology; ATTEND Advanced Practice Midwife
PROC: 6A550ZT Pheresis of Cord Blood Stem Cells, Single (ICD-10-PCS; principal; 2018-10-02)
PROC: 10E0XZZ Delivery of Products of Conception, External Approach (ICD-10-PCS; principal; 2018-10-02)
PROC: 3E0R3BZ Introduction of Anesthetic Agent into Spinal Canal, Percutaneous Approach (ICD-10-PCS; 2018-10-02)
PROC: 00HU33Z Insertion of Infusion Device into Spinal Canal, Percutaneous Approach (ICD-10-PCS; 2018-10-02)
DX: O99.824 Streptococcus B carrier state complicating childbirth (principal); Z37.0 Single live birth; O99.02 Anemia complicating childbirth; D64.9 Anemia, unspecified; O99.72 Diseases of the skin and subcutaneous tissue complicating childbirth; Z3A.38 38 weeks gestation of pregnancy; L30.9 Dermatitis, unspecified; O69.1XX0 Labor and delivery complicated by cord around neck, with compression, not applicable or unspecified; Z87.440 Personal history of urinary (tract) infections
CPT/HCPCS: 36415; 59025; 59409; 85027; 85460; 86850; 86870; 86900; 86901; A9270-GY; J0290; J2210; J2590; J2792; J7030; J7120

== ENCOUNTER 2019-09-08 21:35 | Emergency (ER) | payer OTHER, MEDICAID ==
[2019-09-08] MEDS ORDERED: Morphine 2 MG/ML Syringe IVPUSH ONE (21:41)
[2019-09-08] MEDS ORDERED: Ondansetron 4 MG/2 ML SDV IVPUSH ONE (21:46)
[2019-09-08 22:02] LABS: CHLORIDE,CL 102 mmol/L (98-107); POTASSIUM,K 3.4 mmol/L (3.5-5.1); SODIUM,NA 142 mmol/L (136-145)
[2019-09-08 22:18] LABS: BLOOD UREA NITROGEN,BUN 13 mg/dL (7.0-18.0); GLUCOSE RANDOM 141 mg/dL (74-106)
[2019-09-08] MEDS ORDERED: Diphtheria,Pertussis(Acell),Tetanus Vaccine 0.5 ML Syringe IM ONE (22:21)
[2019-09-08 22:24] LABS: CARBON DIOXIDE,CO2 14.5 mmol/L (21.0-32.0)
[2019-09-08] MEDS ORDERED: Iopamidol 755 MG/ML 500 ML Multipack Bottle IVPUSH STA (22:26)
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
[2019-09-08] MEDS ORDERED: Ibuprofen 600 MG Tab PO ONE (23:39)
[2019-09-09 00:12] VITALS: BP 110/70; PULSE 101
== END 2019-09-08 23:50 | disposition home or self-care (01) ==
LOC: MW.ED 21:35
DX: S80.12XA Contusion of left lower leg, initial encounter (principal); F17.210 Nicotine dependence, cigarettes, uncomplicated; Z23 Encounter for immunization; V03.90XA Pedestrian on foot injured in collision with car, pick-up truck or van, unspecified whether traffic or nontraffic accident, initial encounter
CPT/HCPCS: 36415; 71045; 73552; 73590; 74177; 80053; 81003; 84703; 85025; 90471; 90715; 96374; 96375; 99285; A9270; J2270; J2405; Q9967

== ENCOUNTER 2019-09-21 15:50 | Emergency (ER) | payer OTHER, MEDICAID ==
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
[2019-09-21] MEDS ORDERED: Sodium Chloride 0.9% 10 ML Syringe FLUSH PRN (16:39)
[2019-09-21] MEDS ORDERED: Sodium Chloride 0.9% 1,000 ML IV ONE (16:39)
[2019-09-21] MEDS ORDERED: Sodium Chloride 0.9% 2.5 ML Syringe FLUSH PRN (16:39)
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
[2019-09-21] MEDS ORDERED: cefTRIAXone 1 GM in Premix Bag 1 BAG IV ONE (17:28)
[2019-09-21 17:34] LABS: BLOOD UREA NITROGEN,BUN 16 mg/dL (7.0-18.0); CARBON DIOXIDE,CO2 25.1 mmol/L (21.0-32.0); CHLORIDE,CL 100 mmol/L (98-107); GLUCOSE RANDOM 114 mg/dL (74-106); POTASSIUM,K 3.6 mmol/L (3.5-5.1); SODIUM,NA 136 mmol/L (136-145)
--- NOTE | 2019-09-21 19:25 | US ---
Left lower extremity deep venous ultrasound: Duplex and color Doppler evaluation was obtained left common femoral, superficial femoral, popliteal, posterior tibial and peroneal veins. Findings: Popliteal vein not optimally visualized. Veins otherwise show normal color Doppler with normal compression. Impression: 1. Popliteal vein not optimally seen. 2. No evidence of deep venous thrombosis is otherwise seen within the left lower extremity. Diagnostic code #2 This report was dictated in [place] Standard Time
[2019-09-21 19:56] VITALS: BP 115/51; PULSE 113
== END 2019-09-21 19:56 | disposition home or self-care (01) ==
LOC: MW.ED 15:50
DX: S70.12XD Contusion of left thigh, subsequent encounter (principal); R23.4 Changes in skin texture; W23.0XXD Caught, crushed, jammed, or pinched between moving objects, subsequent encounter
CPT/HCPCS: 36415; 80053; 82550; 85025; 85610; 93971; 96361; 96365; 99284; J0696; J7030

== ENCOUNTER 2019-10-17 18:37 | Emergency (ER) | payer MEDICAID ==
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
[2019-10-17 23:46] VITALS: BP 109/63; PULSE 81
== END 2019-10-17 20:55 | disposition home or self-care (01) ==
LOC: MW.ED 18:37
DX: Z48.817 Encounter for surgical aftercare following surgery on the skin and subcutaneous tissue (principal)
CPT/HCPCS: 99282

== ENCOUNTER 2019-10-20 10:45 | Emergency (ER) | payer MEDICAID ==
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
== END 2019-10-20 13:20 | disposition home or self-care (01) ==
LOC: MW.ED 10:45
DX: Z48.01 Encounter for change or removal of surgical wound dressing (principal)
CPT/HCPCS: 99282

== ENCOUNTER 2022-06-22 10:07 | Emergency (ER) | payer MEDICAID ==
[2022-06-22 12:00] VITALS: BP 96/57; PULSE 55
== END 2022-06-22 12:00 | disposition home or self-care (01) ==
LOC: MW.ED 10:07
DX: J02.9 Acute pharyngitis, unspecified (principal); H00.015 Hordeolum externum left lower eyelid; F17.210 Nicotine dependence, cigarettes, uncomplicated
CPT/HCPCS: 87651-QW; 99283

== ENCOUNTER 2023-04-25 10:42 | Emergency (ER) | payer MEDICAID ==
[2023-04-25 11:26] VITALS: BP 103/61; PULSE 65
== END 2023-04-25 12:14 | disposition home or self-care (01) ==
LOC: MW.ED 10:42
DX: H10.023 Other mucopurulent conjunctivitis, bilateral (principal)
CPT/HCPCS: 99282; 99283

== ENCOUNTER 2023-10-10 06:27 | Emergency (ER) | payer MEDICAID ==
[2023-10-10 07:52] VITALS: BP 110/66; PULSE 76
== END 2023-10-10 07:51 | disposition home or self-care (01) ==
LOC: MW.ED 06:27
DX: H00.011 Hordeolum externum right upper eyelid (principal)
CPT/HCPCS: 99283